=== PATIENT | male | born 1940 ===

== ENCOUNTER 2018-09-20 11:26 | Observation (INO) | payer OTHER ==
[~2018-09-20] VITALS: Ht 175.3 cm; Wt 77.1 kg
[~2018-09-20 11:26] MED LIST: ACET500 PO; ASPI81EC PO; CALCIUM PO; CELE200 PO; CEPH500 PO; CHOLESTYRAMINE; CODACE30 PO; CYAN1000I IM; FURO40 PO; GABA300 PO; GLIM4 PO; HYDCHL25 PO; HYDCOR2.5B PR; INSULANPEN SC; LANREOTIDE IM; LISI5 PO; MAGNESIUM400 M1 PO; MULVITMINF PO; NITROGLYCERIN PR; Norco 5-325 Ta1 EACH PO; OMEP20ER PO; OMEP40CA12 PO; OXYC5 PO; POTCHL20ER PO; Prilosec Otc20 MG; SITA100T2 PO; VERA180ER PO
[2018-09-20] MEDS ORDERED: HYDROCODON-ACE1 EAC3 PO (11:57)
[2018-09-20] MEDS ORDERED: AMLO10 PO ×2 (11:58→20:01)
[2018-09-20] MEDS ORDERED: CHLO25B PO (11:58)
[2018-09-20] MEDS ORDERED: Novolog100 UNIT/1 SQ (11:59)
[2018-09-20] MEDS ORDERED: BACLOFEN5 MG PO (11:59)
[2018-09-20] MEDS ORDERED: DICL25ER TOP (11:59)
[2018-09-20] MEDS ORDERED: ASPI81CH PO (11:59)
[2018-09-20] MEDS ORDERED: SAXA2.5T (12:00)
[2018-09-20 12:09] LABS: BASOPHILS ABSOLUTE AUTO 0.06 K/mm3 (0.00-0.23); BASOPHILS PERCENT AUTO 1 % (0-2); EOSINOPHILS PERCENT AUTO 1 % (0-6); Hematocrit 29.8 % (37.0-53.0); Hemoglobin 9.1 g/dL (13.5-17.5); IMMATURE GRAN ABSOLUTE AUTO 0.08 K/mm3 (0.00-0.10); IMMATURE GRAN PERCENT AUTO 1 % (0-1); LYMPHOCYTES ABSOLUTE AUTO 1.31 K/mm3 (0.84-5.20); LYMPHOCYTES PERCENT AUTO 12 % (21-46); MONOCYTES ABSOLUTE AUTO 0.85 K/mm3 (0.16-1.47); MONOCYTES PERCENT AUTO 8 % (4-13); Mean Corpuscular HGB 27.7 pg (26.0-34.0); Mean Corpuscular HGB Conc 30.5 g/dL (31.5-36.5); Mean Corpuscular Volume 91 fL (80-100); Mean Platelet Volume 12.9 fL (9.1-12.4); NEUTROPHILS ABSOLUTE AUTO 8.32 K/mm3 (1.96-9.15); NEUTROPHILS PERCENT AUTO 78 % (41-73); Platelet Count 126 K/mm3 (150-400); RDW Standard Deviation 50.5 fL (35.1-46.3); Red Blood Cell Count 3.28 M/mm3 (4.30-5.90); White Blood Cell Count 10.72 K/mm3 (4.00-11.30)
[2018-09-20 12:32] LABS: Albumin/Globulin Ratio 0.8 (0.8-1.8); Bilirubin, Total 0.8 mg/dL (0.1-1.0); Bun/Creatinine Ratio 14.2 (12.0-20.0); Calcium, Blood 8.2 mg/dL (8.5-10.1); Creatinine, Blood 2.19 mg/dL (0.60-1.20); Globulin, Blood 3.9 g/dL (2.2-4.0); Total Protein, Blood 6.9 g/dL (6.4-8.2)
[2018-09-20] MEDS ORDERED: SAXA2.5T PO (19:59)
[2018-09-20] MEDS ORDERED: GABA600 PO (20:00)
[2018-09-20] MEDS ORDERED: Norco 5-325 Ta1 EACH PO (20:00)
[2018-09-20] MEDS ORDERED: LISI5 PO (20:01)
[2018-09-20] MEDS ORDERED: [UNRECOGNIZED DRUG - OTHER] PO (20:02)
[2018-09-20] MEDS ORDERED: OMEPRAZOLE20 MG PO (20:02)
[2018-09-21 06:25] LABS: BASOPHILS ABSOLUTE AUTO 0.07 K/mm3 (0.00-0.23); BASOPHILS PERCENT AUTO 1 % (0-2); EOSINOPHILS ABSOLUTE AUTO 0.13 K/mm3 (0.00-0.68); EOSINOPHILS PERCENT AUTO 2 % (0-6); Hematocrit 30.5 % (37.0-53.0); Hemoglobin 9.7 g/dL (13.5-17.5); IMMATURE GRAN ABSOLUTE AUTO 0.04 K/mm3 (0.00-0.10); IMMATURE GRAN PERCENT AUTO 1 % (0-1); LYMPHOCYTES ABSOLUTE AUTO 1.16 K/mm3 (0.84-5.20); LYMPHOCYTES PERCENT AUTO 13 % (21-46); MONOCYTES ABSOLUTE AUTO 0.76 K/mm3 (0.16-1.47); MONOCYTES PERCENT AUTO 9 % (4-13); Mean Corpuscular HGB 27.8 pg (26.0-34.0); Mean Corpuscular HGB Conc 31.8 g/dL (31.5-36.5); NEUTROPHILS ABSOLUTE AUTO 6.71 K/mm3 (1.96-9.15); NEUTROPHILS PERCENT AUTO 76 % (41-73); Platelet Count 128 K/mm3 (150-400); RDW Standard Deviation 48.4 fL (35.1-46.3); Red Blood Cell Count 3.49 M/mm3 (4.30-5.90); White Blood Cell Count 8.87 K/mm3 (4.00-11.30)
[2018-09-21 06:26] LABS: Mean Corpuscular Volume 87 fL (80-100); Mean Platelet Volume 13.6 fL (9.1-12.4)
[2018-09-21 06:43] LABS: Bun/Creatinine Ratio 15.4 (12.0-20.0); Calcium, Blood 8.6 mg/dL (8.5-10.1); Creatinine, Blood 1.62 mg/dL (0.60-1.20); Magnesium, Blood 1.8 mg/dL (1.6-2.4); Phosphorus, Blood 2.2 mg/dL (2.5-4.9); Potassium, Blood 3.6 mmol/L (3.5-5.5)
[2018-09-21 06:50] LABS: Percent Saturation 7.6 % (20.0-50.0)
[2018-09-21] MEDS ORDERED: HUMALOG KW200 UNIT/1 SC (11:01)
[2018-09-21] MEDS ORDERED: Ferrous Sulfat325 MG PO (11:07)
== END 2018-09-21 12:17 | disposition home or self-care (01) ==
LOC: ER 11:26 → ERHOLD 11:27 → MEDS 11:27 → ER 11:27 → ERHOLD 09-21 12:17
PROVIDERS: Emergency Medicine; ADMIT Internal Medicine
DX: N17.9 Acute kidney failure, unspecified (principal); E86.1 Hypovolemia; G92 Toxic encephalopathy; C7B.02 Secondary carcinoid tumors of liver; E87.6 Hypokalemia; E11.9 Type 2 diabetes mellitus without complications; I50.9 Heart failure, unspecified; E78.5 Hyperlipidemia, unspecified; Z88.2 Allergy status to sulfonamides; Z88.8 Allergy status to other drugs, medicaments and biological substances; Z79.899 Other long term (current) drug therapy; Z79.82 Long term (current) use of aspirin; Z79.4 Long term (current) use of insulin
CPT/HCPCS: 36415; 80048; 80053; 82728; 82947; 83540; 83550; 83735; 84100; 85025; 93005; 93010; J1650; J7030

== ENCOUNTER 2019-01-25 15:49 | Emergency (ER) | payer OTHER ==
[~2019-01-25] VITALS: Ht 175.3 cm; Wt 71.7 kg
[~2019-01-25 15:49] MED LIST changes: +AMLO10 PO; +ASPI81CH PO; +BACLOFEN5 MG PO; +CHLO25B PO; +DICL25ER TOP; +Ferrous Sulfat325 MG PO; +GABA600 PO; +HUMALOG KW200 UNIT/1 SC; +HYDROCODON-ACE1 EAC3 PO; +Novolog100 UNIT/1 SQ; +OMEPRAZOLE20 MG PO; +SAXA2.5T; +SAXA2.5T PO; +[UNRECOGNIZED DRUG - OTHER] PO
[2019-01-25 16:51] LABS: BASOPHILS ABSOLUTE AUTO 0.09 K/mm3 (0.00-0.23); BASOPHILS PERCENT AUTO 1 % (0-2); EOSINOPHILS ABSOLUTE AUTO 0.03 K/mm3 (0.00-0.68); EOSINOPHILS PERCENT AUTO 0 % (0-6); Hemoglobin 9.3 g/dL (13.5-17.5); IMMATURE GRAN PERCENT AUTO 1 % (0-1); LYMPHOCYTES ABSOLUTE AUTO 0.87 K/mm3 (0.84-5.20); LYMPHOCYTES PERCENT AUTO 6 % (21-46); MONOCYTES ABSOLUTE AUTO 0.95 K/mm3 (0.16-1.47); MONOCYTES PERCENT AUTO 7 % (4-13); Mean Corpuscular HGB 27.4 pg (26.0-34.0); Mean Corpuscular Volume 91 fL (80-100); NEUTROPHILS ABSOLUTE AUTO 11.75 K/mm3 (1.96-9.15); NEUTROPHILS PERCENT AUTO 85 % (41-73); RDW Coefficient Variation 16.2 % (11.7-14.2); RDW Standard Deviation 54.4 fL (35.1-46.3); White Blood Cell Count 13.79 K/mm3 (4.00-11.30)
[2019-01-25 16:52] LABS: Platelet Count 98 K/mm3 (150-400)
[2019-01-25 17:02] LABS: Alanine Aminotransfer (ALT/SGP 19 U/L (12-78); Albumin, Blood 3.7 g/dL (3.4-5.0); Albumin/Globulin Ratio 1.1 (0.8-1.8); Alk Phos 64 U/L (50-136); Anion Gap 8 mmol/L (6-16); Aspartate Aminotrans (AST/SGOT 17 U/L (12-37); Bilirubin, Total 0.7 mg/dL (0.1-1.0); Blood Urea Nitrogen 40 mg/dL (8-24); Bun/Creatinine Ratio 17.4 (12.0-20.0); CO2, Blood 22 mmol/L (21-32); Calcium, Blood 8.5 mg/dL (8.5-10.1); Chloride, Blood 108 mmol/L (98-108); Globulin, Blood 3.3 g/dL (2.2-4.0); Glomerular Filtration Rate 29 (60-); Glucose, Blood 254 mg/dL (70-99); Sodium, Blood 138 mmol/L (136-145); Troponin I <0.015 ng/mL (0.000-0.040)
[2019-01-25] MEDS ORDERED: ALOGLIPTIN12.5 MG PO (17:07)
== END 2019-01-25 18:30 | disposition home or self-care (01) ==
LOC: ER 15:49
PROVIDERS: Emergency Medicine
DX: E86.0 Dehydration (principal); R55 Syncope and collapse; Z88.2 Allergy status to sulfonamides; Z88.1 Allergy status to other antibiotic agents; Z79.899 Other long term (current) drug therapy; Z79.82 Long term (current) use of aspirin; Z79.4 Long term (current) use of insulin; Z79.891 Long term (current) use of opiate analgesic
CPT/HCPCS: 36415; 71046; 80053; 82947; 83880; 84484; 85025; 93005; 93010; 99285-25

== ENCOUNTER 2019-01-27 15:55 | Emergency (ER) | payer OTHER ==
[~2019-01-27] VITALS: Ht 172.7 cm; Wt 70.3 kg
[~2019-01-27 15:55] MED LIST changes: +ALOGLIPTIN12.5 MG PO
[2019-01-27 16:36] LABS: BASOPHILS ABSOLUTE AUTO 0.07 K/mm3 (0.00-0.23); BASOPHILS PERCENT AUTO 1 % (0-2); EOSINOPHILS ABSOLUTE AUTO 0.06 K/mm3 (0.00-0.68); EOSINOPHILS PERCENT AUTO 1 % (0-6); Hematocrit 33.3 % (37.0-53.0); Hemoglobin 10.5 g/dL (13.5-17.5); IMMATURE GRAN ABSOLUTE AUTO 0.06 K/mm3 (0.00-0.10); IMMATURE GRAN PERCENT AUTO 1 % (0-1); LYMPHOCYTES ABSOLUTE AUTO 0.91 K/mm3 (0.84-5.20); LYMPHOCYTES PERCENT AUTO 8 % (21-46); MONOCYTES ABSOLUTE AUTO 1.28 K/mm3 (0.16-1.47); MONOCYTES PERCENT AUTO 11 % (4-13); Mean Corpuscular HGB 27.3 pg (26.0-34.0); Mean Corpuscular HGB Conc 31.5 g/dL (31.5-36.5); Mean Platelet Volume 12.6 fL (9.1-12.4); NEUTROPHILS ABSOLUTE AUTO 9.64 K/mm3 (1.96-9.15); NEUTROPHILS PERCENT AUTO 80 % (41-73); Platelet Count 144 K/mm3 (150-400); RDW Coefficient Variation 15.8 % (11.7-14.2); RDW Standard Deviation 49.7 fL (35.1-46.3); Red Blood Cell Count 3.85 M/mm3 (4.30-5.90); White Blood Cell Count 12.02 K/mm3 (4.00-11.30)
[2019-01-27 16:42] LABS: Mean Corpuscular Volume 87 fL (80-100)
[2019-01-27 17:00] LABS: Magnesium, Blood 2.2 mg/dL (1.6-2.4); Troponin I <0.015 ng/mL (0.000-0.040)
[2019-01-27 17:01] LABS: Alanine Aminotransfer (ALT/SGP 18 U/L (12-78); Albumin, Blood 3.6 g/dL (3.4-5.0); Albumin/Globulin Ratio 0.9 (0.8-1.8); Alk Phos 72 U/L (50-136); Anion Gap 6 mmol/L (6-16); Aspartate Aminotrans (AST/SGOT 46 U/L (12-37); Bilirubin, Total 1.4 mg/dL (0.1-1.0); Blood Urea Nitrogen 33 mg/dL (8-24); Bun/Creatinine Ratio 17.7 (12.0-20.0); CO2, Blood 26 mmol/L (21-32); Calcium, Blood 8.8 mg/dL (8.5-10.1); Chloride, Blood 103 mmol/L (98-108); Creatinine, Blood 1.86 mg/dL (0.60-1.20); Globulin, Blood 3.8 g/dL (2.2-4.0); Glomerular Filtration Rate 37 (60-); Glucose, Blood 242 mg/dL (70-99); Potassium, Blood 3.7 mmol/L (3.5-5.5); Sodium, Blood 135 mmol/L (136-145); Total Protein, Blood 7.4 g/dL (6.4-8.2)
[2019-01-27 17:12] LABS: Source, Urine Clean Catch
[2019-01-27 17:16] LABS: Blood, Urine 3+ (Neg); Glucose Qualitative, Urine 3+ (Neg); Ketones, Urine 1+ (Neg); Leukocyte Esterase, Urine Neg (Neg); Nitrite, Urine Neg (Neg); Protein, Urine 3+ (Neg); Specific Gravity, Urine 1.015 (1.003-1.022); Urobilinogen, Urine NORM (Normal)
[2019-01-27 17:22] LABS: Appearance, Urine Hazy (Clear); Bilirubin, Urine 2+ (Neg); Color, Urine Yellow (P-Yellow)
[2019-01-27 17:27] LABS: Bacteria Few /hpf; Mucus Light (0-Heavy); Squamous Epithelial Cells Few /hpf (Few)
== END 2019-01-27 19:26 ==
LOC: ER 15:55
PROVIDERS: Emergency Medicine
DX: E86.0 Dehydration (principal); R53.1 Weakness; I50.9 Heart failure, unspecified; E11.9 Type 2 diabetes mellitus without complications; E78.5 Hyperlipidemia, unspecified
CPT/HCPCS: 71045; 80053; 81001; 83735; 83880; 84484; 85025; 93005; 93010; 99285-25; J7030

== ENCOUNTER 2019-06-11 15:13 | Emergency (ER) | payer OTHER ==
[~2019-06-11] VITALS: Ht 165.1 cm; Wt 61.2 kg
[~2019-06-11 15:13] MED LIST changes: +MAGNESIUM OXID500 MG PO; -MAGNESIUM400 M1 PO
[2019-06-11] MEDS ORDERED: Zantac150 MG (15:28)
[2019-06-11] MEDS ORDERED: HYDR10 PO (15:31)
[2019-06-11] MEDS ORDERED: GUAI200 PO (15:33)
[2019-06-11 16:06] LABS: BASOPHILS ABSOLUTE AUTO 0.06 K/mm3 (0.00-0.23); BASOPHILS PERCENT AUTO 1 % (0-2); EOSINOPHILS PERCENT AUTO 3 % (0-6); Hematocrit 33.2 % (37.0-53.0); Hemoglobin 10.6 g/dL (13.5-17.5); IMMATURE GRAN ABSOLUTE AUTO 0.03 K/mm3 (0.00-0.10); IMMATURE GRAN PERCENT AUTO 0 % (0-1); LYMPHOCYTES PERCENT AUTO 15 % (21-46); MONOCYTES ABSOLUTE AUTO 0.72 K/mm3 (0.16-1.47); MONOCYTES PERCENT AUTO 10 % (4-13); Mean Corpuscular HGB 29.4 pg (26.0-34.0); Mean Corpuscular HGB Conc 31.9 g/dL (31.5-36.5); Mean Corpuscular Volume 92 fL (80-100); NEUTROPHILS ABSOLUTE AUTO 5.48 K/mm3 (1.96-9.15); NEUTROPHILS PERCENT AUTO 72 % (41-73); Platelet Count 143 K/mm3 (150-400); RDW Coefficient Variation 14.7 % (11.7-14.2); RDW Standard Deviation 50.3 fL (35.1-46.3); White Blood Cell Count 7.59 K/mm3 (4.00-11.30)
[2019-06-11 16:07] LABS: Mean Platelet Volume 13.7 fL (9.1-12.4)
[2019-06-11 16:30] LABS: Calcium, Blood 8.8 mg/dL (8.5-10.1); Creatinine, Blood 1.69 mg/dL (0.60-1.20); Potassium, Blood 3.6 mmol/L (3.5-5.5); Troponin I 0.017 ng/mL (0.000-0.040)
[2019-06-11 17:58] LABS: Appearance, Urine Clear (Clear); Blood, Urine Neg (Neg); Color, Urine Yellow (P-Yellow); Glucose Qualitative, Urine 3+ (Neg); Ketones, Urine Neg (Neg); Leukocyte Esterase, Urine Neg (Neg); Nitrite, Urine Neg (Neg); Protein, Urine 3+ (Neg); Specific Gravity, Urine 1.015 (1.003-1.022); Urobilinogen, Urine NORM (Normal)
[2019-06-11 18:06] LABS: Bilirubin, Urine 1+ (Neg); Source, Urine Clean Catch
[2019-06-11 18:10] LABS: Red Blood Cells, Urine 0-2 /hpf (0-2); White Blood Cells, Urine 0-2 /hpf (0-5)
[2019-06-11 18:11] LABS: Bacteria Few /hpf; Squamous Epithelial Cells Few /hpf (Few)
== END 2019-06-11 19:42 | disposition home or self-care (01) ==
LOC: ER 15:13
PROVIDERS: Emergency Medicine
DX: E86.0 Dehydration (principal); I12.9 Hypertensive chronic kidney disease with stage 1 through stage 4 chronic kidney disease, or unspecified chronic kidney disease; E11.22 Type 2 diabetes mellitus with diabetic chronic kidney disease; N18.9 Chronic kidney disease, unspecified; D63.1 Anemia in chronic kidney disease; R19.7 Diarrhea, unspecified; E78.5 Hyperlipidemia, unspecified; Z85.05 Personal history of malignant neoplasm of liver; Z88.2 Allergy status to sulfonamides; Z88.1 Allergy status to other antibiotic agents; Z79.899 Other long term (current) drug therapy; Z79.82 Long term (current) use of aspirin; Z79.4 Long term (current) use of insulin
CPT/HCPCS: 36415; 71045; 80048; 81001; 84484; 85025; 93005; 93010; 96360; 96361; 99284-25; J7030